=== PATIENT | male | born 1945 | race Caucasian/White ===

== ENCOUNTER 2022-07-24 06:15 | Outpatient (CLI) | payer MEDICARE, OTHER ==
[~2022-07-24] VITALS: Ht 182.9 cm; Wt 110.1 kg
[~2022-07-24 06:15] MED LIST: ALOG25TA PO; CHRO400T10 PO; CIPR-226 PO; GLIM1TAB4 PO; HYDR-3920 PO; HYDR-4226 PO; LISI10TA25 PO; METF-399 PO; MULT-974 PO; NITR-68 PO; OMEG500C PO; PIOG30TA71 PO; TMSL.4C PO
[2022-07-24] MEDS ORDERED: ROSU10TA28 PO (09:31)
[2022-07-24] MEDS ORDERED: INSU100V SQ (09:31)
[2022-07-24] MEDS ORDERED: INSU100V37 SQ (09:31)
== END 2022-07-24 09:51 | disposition home or self-care (01) ==
LOC: PREOP 06:15
PROVIDERS: ATTEND Internal Medicine
DX: Z01.818 Encounter for other preprocedural examination (principal)

== ENCOUNTER 2022-08-02 08:28 | Day surgery (SDC) | payer MEDICARE, OTHER ==
--- NOTE | 2022-07-24 08:13 | HISTORY AND PHYSICAL ---
DATE OF SERVICE: COLONOSCOPY HISTORY AND PHYSICAL HISTORY OF PRESENT ILLNESS: The patient is a 76-year-old white male, who reports over the last 8 months, he has been having increasing problems with diarrhea multiple times a week. It usually happens after lunch, his biggest meal of the day where he will sometimes have to go 3 or 4 times. He denies blood bright red or melena. Does report over the past several months, he has had some bilateral lower quadrant abdominal pain prior to the passage of stool with improvement after the passage of stool. He denies fecal incontinence. He has been referred by Dr. Carpenter. His last colonoscopy was performed by myself seven years ago, at which time, he had no evidence for neoplasia. On his first colonoscopy in 2007, he reportedly had two adenomas removed per Dr. Huerta. He is not aware of any family history for colon cancer. PAST MEDICAL HISTORY: Significant for type 2 diabetes, now insulin requiring. He was on Trulicity. This was discontinued because of diarrhea towards beginning of the year. He thought there was possibly some mild initial improvement. He reports his control has not been good, but due to the fact that he has been skipping his bolus insulin before lunch his largest meal he has been better about getting this in and notes over the past several weeks his blood sugars have been lower and his diarrhea is little bit better as well. He has not noted that there is any association with any specific food types including lactose. He has no past known history of gluten sensitivity. PAST MEDICAL HISTORY: Significant for hypertension with no known history of vascular disease. He is also on 10 mg of rosuvastatin for hyperlipidemia. OTHER MEDICATIONS: Lisinopril 10 mg daily and Tresiba as well as lispro. PAST SURGICAL HISTORY: He had an umbilical hernia repair. Reporting no other surgeries and this was over 10 years ago. FAMILY HISTORY: Mother of either urinary tract or ovarian related malignancy at the age of 32. Father at 80 with complications of myocardial infarction. He is not aware of any family history for colon cancer or colon polyps. SOCIAL HISTORY: He is retired. Denies any past smoking history and no significant alcohol intake. REVIEW OF SYSTEMS: CONSTITUTIONAL: Denies night sweats, chills, fever or change in weight. GASTROINTESTINAL: As noted in the HPI. PULMONARY: Denies cough, wheezing or shortness of breath. CARDIOVASCULAR: Denies orthopnea, PND, dyspnea on exertion or chest discomfort. PHYSICAL EXAMINATION: GENERAL: Reveals a pleasant overweight white male in no acute distress. VITAL SIGNS: Weight was 242 pounds compared to a weight of 240 pounds seven years ago. HEENT: Unremarkable. Sclerae nonicteric. CHEST: Clear to auscultation. CARDIAC: Reveals a regular rate and rhythm. Soft 1 to 2/6 systolic ejection murmur heard best at left lower sternal border without diastolic murmur. No S3 or S4 noted. ABDOMEN: Soft, supple. There is no evidence for diastasis recti. No mass, organomegaly or tenderness is noted. Abdomen is obese. EXTREMITIES: Reveal no cyanosis, clubbing or edema. RECTAL: Deferred at the time of colonoscopy. ASSESSMENT AND PLAN: For further investigation of diarrhea and bilateral lower quadrant abdominal pain that has been rather chronic, the patient is being set up for colonoscopy. Prep instructions were given, and questions were answered. The patient was instructed to just take half of his typical lispro dose while on clear liquids the day before his procedure and hold it the morning of his procedure. He will continue his other medications unchanged. I thank you for the referral of this pleasant gentleman. Job ID: [id number] DocumentID: [id number] Dictated Date: 07/17/2022 17:08:24 Fretted Instrument Repairer Date: 07/17/2022 18:02:48 Dictated By: NANCY ESTEBAN MD
[~2022-08-02] VITALS: Ht 183 cm; Wt 110.1 kg
[~2022-08-02 08:28] MED LIST changes: +INSU100V SQ; +INSU100V37 SQ; +ROSU10TA28 PO
[2022-08-02] MEDS ORDERED: LACTATED RINGERS 1,000 ML IV STA (08:34)
[2022-08-02 08:40] VITALS: BP 136/91
--- NOTE | 2022-08-02 09:04 | Pre-Op Note & Conscious Sedat ---
Pre-Operative Progress Note Date H&P Reviewed: Aug 02, 2022 Time H&P Reviewed: 09:04 History & Physical: H&P Reviewed, Patient Examed, No changes noted Pre-Op Diagnosis: screening Conscious Sedation Pre-Proced ASA Score 2 For ASA 3 and 4: Consider anesthesia and medical clearance. Also, for patients with a history of failed moderate sedation consider anesthesia. Airway Lungs Heart ASA score ASA 1: a normal healthy patient ASA 2: a patient with a mild systemic disease (mid diabetes, controlled hypertension, obesity ASA 3: a patient with a severe systemic disease that limits activity (angina, COPD, prior Myocardial infarction) ASA 4: a patient with an incapacitating disease that is a constant threat to life (CHF, renal failure) ASA 5: a moribund patient not expected to survive 24 hrs. (ruptured aneurysm) ASA 6: a declared brain- patient whose organs are being harvested. For emergent operations, add the letter E after the classification Mallampati Classification Grade 2 Sedation Plan Analgesia, Amnesia, Plan communicated to team members, Discussed options with patient/fam, Discussed risks with patient/fam The patient is an appropriate candidate to undergo the planned procedure, sedation, and anesthesia. The patient immediately re-assessed prior to indication. NANCY ESTEBAN MD Aug 02, 2022 09:04
[2022-08-02] MEDS ORDERED: MIDAZOLAM 2 MG/2 ML (VERSED) VIAL ONE (09:44)
[2022-08-02] MEDS ORDERED: PROPOFOL INJECTION 50 ML IV ONE ×2 (09:44→10:04)
[2022-08-02 10:20] VITALS: BP 129/73
--- NOTE | 2022-08-02 10:20 | Progress Note-Post Operative ---
Post-Procedure Note Physician (s)/Licensed Professional Counselor (s) Physician NANCY ESTEBAN MD Pre-Procedure Diagnosis Pre-Procedure Diagnosis: screening Post-Procedure Note Findings/Procedure Note Patient was referred for colonoscopy due to history of diarrhea and bilateral lower quadrant abdominal pain. Prior to undergoing colonoscopy digital rectal evaluation was performed. Anal tone was normal and the perianal reflexes intact. Prostate is mildly enlarged visual inspection and a nodular. No other abnormalities noted were noted on digital inspection of the anal canal or distal rectal vault. The colonoscope was inserted into the rectum and under direct visualization to the cecum. The cecum was notified by indication of the cecal strap. Photographic documentation was obtained. Quality of the prep was good. Findings: There were no evidence for internal or external hemorrhoids in the rectum sigmoid colon descending colon splenic flexure transverse colon hepatic flexure ascending colon and cecum were unremarkable. The distal several centimeters of terminal ileum were unremarkable on visual inspection as well. Biopsies were obtained from the ascending colon and rectum to evaluate for underlying microscopic colitis. Normal colonoscopy to the cecum including distal terminal ileum. Biopsies are obtained for evaluation for microscopic colitis. If biopsies are unremarkable patient's history would suggest underlying small bowel bacterial overgrowth and I would advise a 2-week round of Xifaxan 550 mg 3 times daily. If biopsies do suggest underlying microscopic colitis I will take the liberty of having the patient return to discuss treatment options with referral back to you for ongoing care. I thank you for the furl of this pleasant gentleman. Sincerely, Nancy Esteban MD. Post-Procedure Diagnosis Post-operative diagnosis: normal colon NANCY ESTEBAN MD Aug 02, 2022 10:20
[2022-08-02 10:25] VITALS: BP 123/73
[2022-08-02 10:30] VITALS: BP 117/61
[2022-08-02 10:35] VITALS: BP 117/61
[2022-08-02 10:58] VITALS: BP 117/61
--- NOTE | 2022-08-02 11:31 | Anesthesia-General Post-Op ---
MAC Patient Condition Mental Status/LOC: Same as Preop Cardiovascular: Satisfactory Nausea/Vomiting: Absent Respiratory: Satisfactory Pain: Controlled Complications: Absent Post Op Complications Complications None Follow Up Care/Instructions Patient Instructions None needed. Anesthesiology Discharge Order Discharge Order Patient is doing well, no complaints, stable vital signs, no apparent adverse anesthesia problems. No complications reported per nursing. CHERRI GARNETT CRNA Aug 02, 2022 11:31
== END 2022-08-02 11:05 | disposition home or self-care (01) ==
LOC: ENDO 08:28
PROVIDERS: ATTEND Internal Medicine
DX: K62.1 Rectal polyp (principal); R89.7 Abnormal histological findings in specimens from other organs, systems and tissues; N40.0 Benign prostatic hyperplasia without lower urinary tract symptoms; E11.9 Type 2 diabetes mellitus without complications; E78.5 Hyperlipidemia, unspecified; I10 Essential (primary) hypertension; Z79.4 Long term (current) use of insulin; Z79.899 Other long term (current) drug therapy; Z86.010 Personal history of colon polyps; E66.9 Obesity, unspecified; Z68.32 Body mass index [BMI] 32.0-32.9, adult
CPT/HCPCS: 82947